=== PATIENT | female | born 1970 | race Caucasian/White ===

== ENCOUNTER 2019-07-24 15:23 | Outpatient (CLI) | payer BC ==
--- NOTE | 2019-07-24 15:52 | MMO ---
Bilateral MAMMO Bilat Screen [facility]. CLINICAL HISTORY: Patient is 49 years old and is seen for screening. The patient has no family history of breast cancer. The patient has no personal history of cancer. VIEWS: The views performed were: bilateral craniocaudal with tomosynthesis and bilateral mediolateral oblique with tomosynthesis. This study has been interpreted with the assistance of computer-aided detection. MAMMOGRAM FINDINGS: There are scattered fibroglandular densities. There are no suspicious masses, suspicious calcifications, or new areas of architectural distortion. IMPRESSION: THERE IS NO MAMMOGRAPHIC EVIDENCE OF MALIGNANCY. A ROUTINE FOLLOW-UP MAMMOGRAM IN 1 YEAR IS RECOMMENDED. THE RESULTS OF THIS EXAM WERE SENT TO THE PATIENT. ACR BI-RADS Category 1 - Negative MAMMOGRAPHY NOTE: 1. A negative mammogram report should not delay a biopsy if a dominant of clinically suspicious mass is present. 2. Approximately 10% to 15% of breast cancers are not detected by mammography. 3. Adenosis and dense breasts may obscure an underlying neoplasm. Reported by: MARK ADAM MD Electonically Signed: [id number]
== END 2019-07-24 15:24 | disposition home or self-care (01) ==
LOC: BICMAMMO 15:23
PROVIDERS: ATTEND Family Medicine
DX: Z12.31 Encounter for screening mammogram for malignant neoplasm of breast (principal)
CPT/HCPCS: 77063; 77067

== ENCOUNTER 2020-11-04 14:49 | Outpatient (CLI) | payer BC | END 2020-11-04 14:50 | disposition home or self-care (01) | LOC: BICMAMMO 14:49 | PROVIDERS: ATTEND Nurse Practitioner Family | DX: Z12.31 Encounter for screening mammogram for malignant neoplasm of breast (principal); Z13.820 Encounter for screening for osteoporosis; M81.0 Age-related osteoporosis without current pathological fracture | CPT/HCPCS: 77063; 77067; 77080 ==

== ENCOUNTER 2023-12-29 11:21 | Observation (INO) | payer BC ==
[2023-12-29 13:46] VITALS: BMI 29.2
[2023-12-29] MEDS: Acetaminophen 500 MG TAB PO SCH (14:28)
[2023-12-29] MEDS ORDERED: Ondansetron PF 4 MG/2 ML Vial IVP PRN (14:29)
[2023-12-29] MEDS ORDERED: Acetaminophen 325 MG TAB PO PRN (14:29)
[2023-12-29] MEDS: Morphine 2 MG/ML VIAL SLOW IVP SCH (14:29)
[2023-12-29] MEDS ORDERED: Calcium Carbonate 500 MG ChewTAB PO PRN (14:29)
[2023-12-29] MEDS ORDERED: Senokot S 8.6-50 MG TAB PO PRN (14:29)
[2023-12-29 14:31] LABS: Lactic Acid 1.54 mmol/L (0.5-2.2)
[2023-12-29 14:39] LABS: Troponin I Less than 0.010 ng/mL (< 0.028)
[2023-12-29] MEDS: Aspirin Chewable 81 MG TAB PO SCH (15:07)
[2023-12-29] MEDS: Colchicine 0.6 MG TAB PO SCH (15:57)
[2023-12-29 18:26] LABS: Troponin I Less than 0.010 ng/mL (< 0.028)
[2023-12-29 20:30] LABS: Troponin I Less than 0.010 ng/mL (< 0.028)
[2023-12-29] MEDS ORDERED: Acetaminophen 500 MG TAB PO PRN (23:22)
[2023-12-30] MEDS: Lidocaine 2% Viscous Solution 10 ML, Aluminum & Magnesium Hydroxide 30 ML SSW SCH (00:32)
[2023-12-30 04:50] LABS: #Basophils 0.06 10x3/uL (0.0-0.2); %Basophils 0.7 % (0.0-1.0); %Eosinophils 2.6 % (0.0-10.0); %Lymphocytes 26.8 % (21.0-51.0); %Monocytes 7.6 % (0.0-10.0); %Neutrophils 61.9 % (42.0-75.0); Hematocrit 40.9 % (36.0-47.0); Hemoglobin 13.4 g/dL (12.0-16.0); Mean Corpuscular HGB CONC 32.8 g/dL (32.0-36.0); Mean Corpuscular Hemoglobin 31.7 pg (27.0-31.0); Mean Corpuscular Volume 96.7 fL (78.0-98.0); Mean Platelet Volume 9.3 fL (7.4-10.4); Platelet Count 322 10x3/uL (130-400); RBC Distribution Width 14.3 % (11.5-14.5); Red Blood Cell (RBC) Count 4.23 mill/uL (4.20-5.40)
[2023-12-30 05:13] LABS: ALT (SGPT) 19 U/L (8-55); AST (SGOT) 12 U/L (5-34); Albumin 3.2 g/dL (3.5-5.0); Alkaline Phosphatase 78 U/L (40-110); Anion Gap 13 mmol/L (10-20); BUN (Urea Nitrogen) 9 mg/dL (9.8-20.1); Bilirubin, Total 0.9 mg/dL (0.2-1.2); Calc. Creatinine Clearance 101 mL/min (70-130); Calcium 8.5 mg/dL (7.8-10.44); Chloride 107 mmol/L (98-107); Estimated GFR 98; Globulin 2.9 g/dL (2.4-3.5); Glucose 125 mg/dL (70-105); Protein, Total 6.1 g/dL (6.0-8.3); Sodium 138 mmol/L (136-145)
[2023-12-30 05:31] LABS: Carbon Dioxide 22 mmol/L (22-29)
[2023-12-30] MEDS: Aspirin Chewable 81 MG TAB PO SCH (07:56)
[2023-12-30] MEDS: Colchicine 0.6 MG TAB PO SCH (07:57)
[2023-12-30] MEDS: traMADol HCl 50 MG TAB PO PRN (07:57)
[2023-12-30] MEDS: Pantoprazole 40 MG VIAL IVP SCH (07:58)
[2023-12-30] MEDS: Enoxaparin 40 MG (0.4 mL) SYRINGE SC SCH (07:58)
[2023-12-30] MEDS: Ketorolac Tromethamine 30 MG (1 mL) VIAL IVP PRN (10:09)
[2023-12-30] MEDS: Ketorolac Tromethamine 30 MG (1 mL) VIAL IVP SCH (12:35)
[2023-12-30 15:56] VITALS: BP 114/69; TEMP 98.5
== END 2023-12-30 16:27 | disposition home or self-care (01) ==
LOC: OBS 13:15
PROVIDERS: ADMIT Internal Medicine; ATTEND Internal Medicine
PROC: B24BZZZ Ultrasonography of Heart with Aorta (ICD-10-PCS; principal; 2023-12-30)
DX: R07.89 Other chest pain (principal); I31.9 Disease of pericardium, unspecified; K20.90 Esophagitis, unspecified without bleeding; Z72.0 Tobacco use; Z88.6 Allergy status to analgesic agent; Z91.013 Allergy to seafood; Z91.018 Allergy to other foods; Z79.1 Long term (current) use of non-steroidal anti-inflammatories (NSAID); Z79.899 Other long term (current) drug therapy
CPT/HCPCS: 36415; 71045; 71275; 74174; 80053; 82550; 83605; 83690; 84484; 85025; 86141; 93005; 93010; 93306; 94760; 96372; 96374; 96375; 96376; G0378; J1650; J1885; J2272; J2405; J2470; Q9967